=== PATIENT | female | born 1950 | race Two or more races ===

== ENCOUNTER → 2023-12-29 | Outpatient (REF) | payer MEDICARE, OTHER ==
[2023-12-31 14:52] LABS: HPV APTIMA Not Detected (Not Detected)
== END ==
LOC: M SFHCWAGY 13:17
PROVIDERS: ATTEND Nurse Practitioner Family
DX: Z12.4 Encounter for screening for malignant neoplasm of cervix (principal); R87.610 Atypical squamous cells of undetermined significance on cytologic smear of cervix (ASC-US)
CPT/HCPCS: 87624; G0123

== ENCOUNTER → 2024-07-26 | Outpatient (CLI) | payer MEDICARE, OTHER | LOC: M WUC 09:05 | PROVIDERS: ATTEND Nurse Practitioner Family | DX: R05.9 Cough, unspecified (principal) ==